=== PATIENT | male | born 1995 | race Caucasian/White ===

== ENCOUNTER 2017-02-16 02:17 | Emergency (ER) | payer SELFPAY ==
[~2017-02-16] VITALS: Ht 180.3 cm; Wt 71.4 kg
[2017-02-16 02:23] VITALS: TEMP 37; Ht 180.3 cm; Wt 71.4 kg
[2017-02-16] MEDS ORDERED: AMPH25CA PO (02:56)
[2017-02-16] MEDS ORDERED: AMPH10CA3 PO (02:56)
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
[2017-02-16] MEDS ORDERED: XYLOCAINE 1%/SOD BICARB 20 ML VIAL INFIL ONE (05:15)
[2017-02-16] MEDS: AMPICILLIN/SULBACTAM SOD INJ 3,000 MG in SODIUM CHLORIDE 0.9% 100ML 100 ML IV ONE ×2 (05:36→05:46)
[2017-02-16] MEDS ORDERED: AMOX875T PO (07:13)
[2017-02-16 07:24] VITALS: BP 134/76; PULSE 78; O2SAT 98
[2017-02-16] MEDS ORDERED: CEPH500C PO (07:25)
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
== END 2017-02-16 07:25 | disposition home or self-care (01) ==
LOC: C.EDB 02:19 → C.EDC 07:25
DX: S02.2XXB Fracture of nasal bones, initial encounter for open fracture (principal); S01.81XA Laceration without foreign body of other part of head, initial encounter; W50.0XXA Accidental hit or strike by another person, initial encounter